=== PATIENT | male | born 1945 | race African-American/Black ===

== ENCOUNTER 2023-09-11 09:59 | Day surgery (SDC) | payer OTHER ==
[2023-09-11] MEDS ORDERED: LEUPROLIDE ACETATE 22.5 MG DIS IM ONE (10:00)
[2023-09-11 13:22] VITALS: BP 144/72; PULSE 64; RESP 16; TEMP 97.4
== END 2023-09-11 11:00 | disposition home or self-care (01) ==
LOC: JONCCHEMO 09:59 → J7W 10:01 → JONCCHEMO 11:00
PROVIDERS: ATTEND Internal Medicine Hematology & Oncology
DX: Z51.11 Encounter for antineoplastic chemotherapy (principal); C61 Malignant neoplasm of prostate
CPT/HCPCS: 96402; J9217